=== PATIENT | female | born 1985 | race Caucasian/White ===

== ENCOUNTER → 2024-11-02 | Outpatient (CLI) | payer OTHER, SELFPAY ==
[2024-11-02 12:30] LABS: hCG Titer Quant., Serum 137 mIU/mL (<9 non-preg)
== END | disposition home or self-care (01) ==
PROVIDERS: PCP Student in an Organized Health Care Education/Training Program; Referring Provider Advanced Practice Midwife; Visit Provider Advanced Practice Midwife
DX: N91.2 Amenorrhea, unspecified (principal)
CPT/HCPCS: 36415; 84702

== ENCOUNTER 2024-11-13 09:27 | Emergency (ER) | payer OTHER, SELFPAY ==
[2024-11-13 09:28] VITALS: BP 103/74; PULSE 74; RESP 16; TEMP 35.8; O2SAT 100; BMI 23.6
--- NOTE | 2024-11-13 09:46 | EDS_ITS ---
HPI HPI - Female History of Present Illness Chief Complaint: Vag Bleeding Informant: patient Pain Pain: Positive for - (Pelvic cramping) Onset: Today and Yesterday Timing: Intermittent Current Severity: Mild Maximum Severity: Mild Bleeding Issue: Positive for Vaginal bleeding Onset: Today and Yesterday Timing: Intermittent Current Severity: Similar to period Associated Symptoms Associated Symptoms: Negative for Dysuria, Frequency or Urgency Test: Positive Sexually: Positive for Active Control: No control P: 0 Ab: 0 Narrative Narrative: 39-year-old female G1, P0 Ab0. Proximately 5 weeks with her last menstrual period 10/03/2024. Sees [facility] DISTANCE OPERATOR. Basically patient started having some dull pelvic cramping with bleeding yesterday today the bleeding is like a period. Denies any passage of tissue. No fever. No dysuria. She has had no prior pregnancies. Denies any other complaints. Prior similar symptoms: No Recent Illness/Hospitalization: No PFSH PFSH Medical History Amenorrhea H/O headache Emotional problems Seasonal allergies Home Medications ?Medication ?Instructions ?Recorded ?Last Taken ?Type buspirone 5 mg tablet 5 mg PO BID 11/02/24 Unknown History escitalopram oxalate 10 mg tablet 10 mg PO QDAY Unknown History (Lexapro) fexofenadine 60 mg-pseudoephedrine 1 tab PO Q12H PRN 0 11/02/24 Unknown History ER 120 mg tablet,ext.release,12 hr (Jeannette-D 12 Hour) polyethylene glycol 3350 17 gram 17 g PO QDAY 11/02/24 Unknown History oral powder packet (Miralax) cetirizine 10 mg tablet (24Hour 10 mg PO DAILY PRN all ergy symptoms 11/13/24 Unknown History Allergy) Allergy/AdvReac Type Severity Reaction Status Date / Time Environmental Allergies: AdvReac Mild sneezing Verified 11/13/24 09:29 Uncoded (dust mites) Family History Father Heart disease High cholesterol Other Hypertension Surgical History S/P wisdom tooth extraction Social History adopted: No household members: spouse housing: house number of children: 0 current occupational status: unemployed pets and animals: No history of recent travel: Yes ([place]) out of state: Yes out of country: No sexually active: Yes Smoking Status: Never smoker second hand exposure: No alcohol intake: never substance use type: does not use well-balanced diet: daily or most days caffeine: Yes Type: carbonated beverages Number of servings: 1 eating out: other details: 2 / thu what type of physical activity do you participate in: none chris/sabianism: Apostolic seatbelt use: always do you feel safe at home: Yes additional social history: - [place] ROS ED ROS Narrative Denies recent illness. Constitutional Constitutional ED: Denies chills or fever(s) Eyes Eyes: Denies blurry vision ENT ENT ED: Denies ear pain Cardiovascular Cardiovascular: Denies chest pain Respiratory/Chest Respiratory/Chest: Denies cough or dyspnea Gastrointestinal Gastrointestinal: Denies abdominal pain Genitourinary Genitourinary ED: Denies dysuria, hematuria or urinary frequency Musculoskeletal Musculoskeletal: Denies arthralgias, myalgias or neck pain Integumentary Denies abscess or Abrasions Neurologic Neurologic: Denies headache(s) Endocrine Endocrinology: Denies heat intolerance or polydipsia Hematologic/Lymphatic Hematologic/Lymphatic: Denies easy bleeding Allergic/Immunologic Allergic/Immunologic ED: Denies mouth swelling EXAM Physical Exam Narrative Exam Narrative: Well-appearing 39-year-old female. Vital signs stable afebrile. No acute distress. at bedside. H EENT exam pupils are reactive light. Moist extremities. Lungs clear to auscultation. Heart regular rhythm rate about 70 no murmur. Chest wall ribs nontender. Abdomen soft nontender. No peritoneal signs. No significant suprapubic tenderness on exam. Back nontender. Moving all 4 extremities. Normal strength. Normal range of motion. Nontender no edema. Neurologically she is awake alert. Answering questions following commands. Const Vital Signs: 11/13/24 09:28 Temperature 96.5 F L Temperature Source Temporal Pulse Rate 74 Respiratory Rate 16 Blood Pressure 103/74 Blood Pressure Mean 83 Pulse Ox 100 Oxygen Delivery Method Room Air Positive well nourished and well developed; Negative for obese, cachectic, contractures or unkempt General Appearance ED: well developed and NAD; Negative for unkempt, cachectic or contractures Nutritional Appearance: Negative for cachectic or obese HEENT Reports moist mucous membranes Eyes PERRL and EOMs intact bilaterally General Eye ED: Negative for pale conjunctiva or scleral icterus Neck no lymphadenopathy, supple and no JVD Chest Wall inspection of chest normal and palpation of chest normal Resp normal respiratory effort and clear to auscultation bilaterally Cardio regular rate, regular rhythm, S1 normal heart sound, no murmurs and no JVD GI normal to inspection, nondistended, normoactive bowel sounds, soft to palpation, non-tender, non-distended and no masses Auscultation: normoactive bowel sounds Back/Spine Negative for no CVA tenderness General Back: Negative for CVA tenderness Cervical Spine: Negative for cervical spine tenderness Thoracic Spine / Upper Back: Negative for thoracic spinal tenderness Lumbar Spine / Lower Back: Negative for lumbar spinal tenderness Extremity normal to inspection and full ROM General Extremety ED: Negative for edema or tenderness General Extremity: Negative for edema Neuro oriented x3 and CN's II-XII intact bilaterally Sensorium / Orientation: alert, oriented to person, oriented to place and oriented to time; Negative for confused, lethargic or stuporous Motor Exam: strength 5/5 throughout Psych mental status grossly normal Appearance: Negative for unkempt Attitude: No agitated Skin no rashes or lesions noted and no wounds MDM MDM MDM Narrative Medical decision making narrative: 39-year-old female G1, P0 Ab0. 5 weeks . Vaginal bleeding pelvic cramping since yesterday. Concern for miscarriage. Quant, blood type of blood count be obtained. She is having no urinary symptoms. She had a quant 1 to 2 weeks ago was 137 at that time. I will see what her quant is today before I order an ultrasound because of its too low I do not think it is getting give us much information. Also currently this does not appear to be an ectopic. Repeat exam patient is doing well at 11:15 AM. I spoke to LONG DISTANCE OPERATOR on-call Dr. Lis Whitney. Both she and are comfortable with patient being discharged to home. Outpatient follow-up with their office. Call their office tomorrow. Repeat quant in 2 days. I discussed all that with the patient and her and and they are comfortable with the plan. Currently being treated as early miscarriage. History & Record Review Discussion w/independent historian: Patient and Family Additional record(s) reviewed:: Prior inpatient record, Prior outpatient record, Prior ED visit and Prior labs Lab Data Attestation: I reviewed the patient's lab results. Lab results narrative: CBC shows a white count of 8 H&H 9.3 and 28. Platelets 154. Blood type O+. Quant 234. Prior quant 11 days ago was 137. Labs: Laboratory Results - last 24 hr 11/13/24 11/13/24 09:39 09:50 WBC 8.7 RBC 3.00 L Hgb 9.3 L Hct 28.6 L MCV 95.3 MCH 31.0 MCHC 32.5 RDW Std Deviation 46.3 H RDW Coeff of Beth 13.2 Plt Count 154 MPV 9.6 HCG, Quant 234 H Blood Type O POSITIVE Discharge Plan Triage Chief Complaint: Vag Bleeding ED Provider: Niko Tran Dx/Rx/DC Orders Clinical Impression: Incomplete miscarriage Instructions: ED MISCARRIAGE Incomplete Prescriptions: No Action buspirone 5 mg tablet 5 mg PO BID escitalopram oxalate [Lexapro] 10 mg tablet 10 mg PO QDAY fexofenadine-pseudoephedrine [Jeannette-D 12 Hour] 60-120 mg tablet extended release 12 hr 1 tab PO Q12H PRN polyethylene glycol 3350 [Miralax] 17 gram powder in packet 17 g PO QDAY cetirizine [24Hour Allergy] 10 mg tablet 10 mg PO DAILY PRN (Reason: allergy symptoms) Primary Care Provider: Claudine Manzanares Referrals: Karen Reyes DO [Med Staff - Active Staff] - As soon as possible (Call their office tomorrow to be seen no follow-up in appointment in the next several days. They are going to get a repeat quantitative hCG to see if that is going down.) Claudine Manzanares DO [Primary Care Provider] - Activity Restrictions/Additional Instructions: I spoke to Dr. Whitney. Call their office tomorrow. They will see in the next several days. They are going to want to get additional blood work to see if you are quantitative hCG is going down. Motrin and Tylenol for pain. Follow-up with them or return and see us in the emergency department if you start having real heavy bleeding or develop a fever. Print Language: Icelandic Disposition Disposition: Home, Self Care
[2024-11-13 09:55] LABS: Hematocrit 28.6 % (37-47); Hemoglobin 9.3 g/dL (12.0-15.0); Mean Corp Hgb Conc 32.5 g/dL (32-36); Mean Corpuscular Volume 95.3 fL (81-99); Mean Platelet Vol. 9.6 fl (6.2-12.0); Platelet Count 154 K/mm3 (150-450); RBC Distribution Width CV 13.2 % (11.6-14.6); RBC Distribution Width SD 46.3 fl (35.1-43.9); White Blood Count 8.7 K/mm3 (4.4-11.0)
--- OUTSIDE RECORDS SUMMARY | 2024-11-13 10:10 | XMS RPT_ITS | CCD ---
Author Organization [facility] Care Team Providers Care Consultant Name Role Phone Reji Owusu DO Primary Care Provider REJI OWUSU Attending Unavailable REJI OWUSU Primary Care Unavailable Alexa Stacy CNM Attending Provider Dr. Reji Owusu DO Primary Care Provider [phone] Alexa Stacy CNM Referring Provider Alexa Stacy Attending Unavailable Alexa Stacy Attending Unavailable Alexa Stacy Referring Unavailable Reji Owusu Primary Care Unavailable Allergies Allergy Classification Reported Allergen(s) Allergy Type Date of Onset Reaction(s) Facility (2 sources) House Dust Mite; Translations: [HOUSE DUST MITE] Propensity to adverse reactions 5 [facility] (3 sources) Environmental Allergies: Uncoded; Translations: [Environmental Allergies: Uncoded] Propensity to adverse reactions 5 sneezing [facility] Medications Current Medications Medication Drug Class(es) Dates Sig (Normalized) Sig (Original) amitriptyline hydrochloride 10 mg oral tablet (3 sources) Tricyclic Antidepressant Start: 11-02-2024 take 1 tablet by mouth once daily Amitriptyline 10 mg tablet Active 10 mg PO daily November 02, 2024 12:00am take 1 tablet by mouth twice laly ly amitriptyline (Elavil) 10 mg tablet Take 1 tablet (10 mg) by mouth 2 times a day. Active busPIRone hydrochloride 5 mg oral tablet (3 sources) Start: 11-02-2024 take 1 tablet by mouth twice daily Buspirone 5 mg tablet Active 5 mg PO TWICE A DAY November 02, 2024 12:00am busPIRone (Buspa r) 5 mg tablet Take by mouth 2 times a day. Active escitalopram 10 mg oral tablet (3 sources) Serotonin Reuptake Inhibitor Start: 11-02-2024 take 1 tablet by mouth once daily Escitalopram Oxalate (Lexapro) 10 mg tablet Active 10 mg PO daily November 02, 2024 12:00am take 1 tablet by mouth once reza y escitalopram (Lexapro) 10 mg tablet Take 1 tablet (10 mg) by mouth once daily. Active 12 hr fexofenadine hydrochloride 60 mg / pseudoephedrine hydrochloride 120 mg extended release oral tablet (3 sources) alpha-Adrenergic Agonist, Histamine-1 Receptor Antagonist Start: 11-02-2024 take 1 tablet by mouth every twelve hours as needed Fexofenadine-Pseudoephedrine (Jeannette-D 12 Hour) 60-120 mg tablet extended release 12 hr Active 1 {tbl} PO Q12H as needed November 02, 2024 12:00am take 1 tablet by nilo th once daily fexofenadine/pseudoephedrine (JEANNETTE-D 12 HOUR ORAL) Take 1 tablet by mouth once daily. Active Lactobacillus acidophilus (1 source) take 1 capsule by mouth once daily Lactobacillus acidophilus (PROBIOTIC ORAL) Take 1 capsule by mouth once daily. Active Lactobacillus combo no.23 (Zain Probiotic) (2 sources) Start: Lactobacillus combo no.23 (Zain Probiotic) Active PO November 02, 2024 12:00am polyethylene glycol 3350 02387 mg powder for oral solution (3 sources) Osmotic Laxative Start: Polyethylene Glycol 3350 (Miralax) 17 gram powder in packet Active 17 g PO daily November 02, 2024 12:00am polyethylene gly col (Glycolax, Miralax) 17 gram packet Take 17 g by mouth once daily. Active Problems Active Problems Problem Classification Problem Date Documented Da te Episodic/Chronic Anxiety disorders (4 sources) Anticipatory anxiety, mild; Translations: [Other specified anxiety disorders] Onset: 10-05-2024 10-05-2024 Chronic Contraceptive and procreative management (2 sources) Patient encounter status; Translations: [Encounter for other general counseling and advice on procreation] 11-02-2024 Episodic Menstrual disorders (2 sources) Amenorrhea; Translations: [Amenorrhea, unspecified] Onset: 11-07-2024 11-02-2024 Chronic Other inflammatory condition of skin (2 sources) Psoriasis; Translations: [Psoriasis, unspecified] Onset: 10-05-2024 10-05-2024 Chronic Other inflammatory condition of skin (2 sources) Psoriasis, unspecified; Translations: [Psoriasis, unspecified] Onset: 10-05-2024 Chronic Other screening for suspected conditions (not mental disorders or infectious disease) (2 sources) Follow-up status; Translations: [Encounter for test, result unknown] Onset: 11-02-2024 11-02-2024 Episodic Past or Other Problems Problem Classification Problem Date Documented Da te Episodic/Chronic Unclassified (1 source) Onset: 10-05-2024 10-05-2024 Results Test Name Value Interpretation Reference Range Facil ity Laboratory - Chemistry and C hemistry - challengeOrdered By: Alexa Stacy on 11-02-2024 HCG ( test) Ql (U) Negative [facility] Office Visit Reporton 11-02-2024 Inside [facility] Office Visit Report [facility] [address], [address] [place] [address] OFFICE VISIT Date of Service: 11/02/24 MR#: [id number] Acct: [id number] Name: REKHA REYES Rep #: [id number] : 1985 Provider: GAUDENCIO Wheatley ams Age/Sex: 38/F Location: [facility] Status: Signed Intake Vital Signs 11/02/24 08:28 Height 5 ft 5 in Weight: 143 lb BMI 23.8 BP 104/65 Intake Visit Reasons: Fertility Consult () Resawyer Required: No Is patient in pain?: No Allergies Environmental Allergies: Uncoded (dust mites) Adverse Reaction (Mild, Verified 11/02/24 08:47) sneezing Medications ???Medication ???Instructions ???Recorded ???Confirmed ???Type Lactobacillus combo no.23 [Zain PO 11/02/24 11/02/24 History Probiotic] amitriptyline 10 mg tablet 10 mg PO QDAY 11/02/24 11/02/24 Hi story buspirone 5 mg tablet 5 mg PO BID 11/02/24 11/02/24 Hist ory escitalopram oxalate 10 mg tablet 10 mg PO QDAY 11/02/24 11/02/24 H istory (Lexapro) fexofenadine 60 mg-pseudoephedrine 1 tab PO Q12H PRN 11/02/2411/02 History ER 120 mg tablet,ext.release, 12 hr (Jeannette-D 12 Hour) polyethylene glycol 3350 17 gram 17 g PO QDAY 11/02/24 11/02/24 His tory oral powder packet (Miralax) Is last menstrual period known: Yes Last Menstrual Period: 10/03/24 Post menopausal: No : No Do you think of yourself as: straight/heterosexu al Current gender identity: female [facility] Medical History (Updated 11/02/24 @ 09:37 by Alexa Stacy CNM) Amenorrhea H/O headache Emotional problems Seasonal allergies Surgical History (Updated 11/02/24 @ 08:41 by Bhumika Bhagat) S/P wisdom tooth extraction Family History (Updated 11/02/24 @ 08:42 by Bhumika Bhagat) Father Heart disease High cholesterol Other Hypertension Social History (Updated 11/02/24 @ 08:44 by Bhumika Bhagat) adopted: No household members: spouse housing: house number of children: 0 service: No current occupational status: unemployed pets and animals: No history of recent travel: Yes ([place]) out of state: Yes out of country: No sexually active: Yes do you think of yourself as: straight/heterosexu al current gender identity: female Smoking Status: Never smoker second hand exposure: No alcohol intake: never substance use type: does not use well-balanced diet: daily or most days caffeine: Yes Type: carbonated beverages Number of servings: 1 eating out: other details: / thu what type of physical activity do you participate in: none chris/baptist: Apostolic seatbelt use: always do you feel safe at home: Yes additional social history: - Shiva GAYATHRI Fertility Consult () Details: RKEHA REYES is a 38 year old who presents for preconception/infer tility consult. Has been 3 months. Patient did take test yesterday and it was positive. Will repeat today. Reviewed medication list from PCP and is titrating amitriptyline down. She is using this for tension headaches. Reviewed safe medications in . Pap is up to date by OB in another state. Will request records. Female Reproductive History Last Menstrual Period: 10/03/24 Cycle Length: 21-35 Questions: metorrhagia: No, sexually active: Yes, dyspareunia: No and PCB: No ROS Const Constitutional: Reports system reviewed and no additional complaints, except as documented Cardio Card: Reports system reviewed and no additional complaints, except as documented Resp Resp: Reports system reviewed and no additional complaints, except as documented GI GI: Reports system reviewed and no additional complaints, except as documented : Reports system reviewed and no additional complaints, except as documented Skin Skin/Breast: Reports system reviewed and no additional complaints, except as documented Neuro Neuro: Reports system reviewed and no additional complaints, except as documented Psych Psych: Reports system reviewed and no additional complaints, except as documented Exam Const General: cooperative, healthy appearing, comfortable and no acute distress Orientation: alert, awake and oriented x3 Neck Neck: normal visual inspection and full ROM Resp Effort Inspection: normal respiratory effort, able to speak in complete sentences and symmetric chest movement Skin General: no rashes or lesions noted Neuro General: patient alert, patient awake and patient oriented x3 Cognition: normal cognition Speech: speech normal Gait: normal gait Extrem General: normal to inspection and full ROM Psych Appearance: grossly normal and well kempt Mental Status: mental status grossly normal Affect: normal affect Speech and Movement: speech and movement normal Attitude: cooperative Thought Process: normal Thought Content: (more content not included)... Normal [facility] Serum human chorionic gonado tropin detection for pregnancyOrdered By: Alexa Stacy on 11-02-2024 HCG ( test) Ql 137 mIU/mL High <9 [facility] Comment on above: Gestational Age0.2-1 Week: 5-50 mIU/mL1-2 Weeks: 50-500 mIU/mL2-3 Weeks: 100-5000 mIU/mL3-4 Weeks: 500-10,000 mIU/mL4-5 Weeks:1000-50,000 mIU/mL5-6 Weeks: 10,000-100,000 mIU/mL6-8 Weeks: 15,000-200,000 mIU/mL2-3 Months:10,000-100,000 mIU/mL hCG Titer Quant., Serumon HCG QUANT. 137 mIU/mL High <9 non-preg [facility] Comment on above: Result Comment: Gest ational Age 0.2-1 Week: 5-50 mIU/mL 1-2 Weeks: 50-500 mIU/mL 2-3 Weeks: 100-5000 mIU/mL 3-4 Weeks: 500-10,000 mIU/mL 4-5 Weeks:1000-50,000 mIU/mL 5-6 Weeks: 10,000-100,000 mIU/mL 6-8 Weeks: 15,000-200,000 mIU/mL 2-3 Months:10,000-100,000 mIU/mL Performed By: #### L 700.8000 #### [facility] [address] [place], [address] Vital Signs Date Time Vital Sign Value Performing Clinician Vince chaves 11-02-2024 08:28-0400 Body height 165.1 cm Alexa Stacy CNM Work Phone: [facility] 11-02-2024 08:28-0400 Body mass index (BMI) [Ratio] 23.8 kg/m2 Alexa JOM Work Phone: [facility] 11-02-2024 08:28-0400 Body weight 64.86 kg Alexa JOM Work Phone: [facility] 11-02-2024 08:28-0400 Diastolic blood pressure 65 mm[Hg] Alexa JOM Work Phone: [facility] 11-02-2024 08:28-0400 Systolic blood pressure 104 mm[Hg] Alexa JOM Work Phone: [facility] 10-05-2024 14:23-0400 Body height 165.7 cm Reji Owusu DO Work Phone: [facility] 10-05-2024 14:23-0400 Body mass index (BMI) [Ratio] 22.99 kg/m2 Reji Owusu DO Work Phone: [facility] 10-05-2024 14:23-0400 Body weight 63.14 kg Reji Owusu DO Work Phone: [facility] 10-05-2024 14:23-0400 Diastolic blood pressure 68 mm[Hg] Reji Owusu DO Work Phone: [facility] 10-05-2024 14:23-0400 Heart rate 85 /min Reji Owusu DO Work Phone: [facility] 10-05-2024 14:23-0400 Systolic blood pressure 110 mm[Hg] Reji Owusu DO Work Phone: [facility] Encounters Encounter Date Encounter Type Care Provider Facility Start: 11-02-2024 End: 11-02-[address] Reji Owusu DO Work Phone: [facility] Work Phone: Start: 11-02-2024 End: 11-02-2024 Patient encounter procedure Alexa Stacy CNM -Laboratory Work Phone: Start: 11-02-2024 End: 11-02-2024 Patient encounter procedure Alexa Stacy CNM -[facility] Start: 11-02-2024 End: 11-02-2024 ambulatory Alexa Stacy [facility] Work Phone: Start: 11-02-2024 End: 11-02-2024 ambulatory Alexa Stacy Facility:[facility] Start: 10-05-2024 End: 10-05-2024 Office outpatient new 45 minutes Reji Owusu DO Work Phone: [facility] Comment on above: Mild anticipatory an xiety (Primary Dx); Psoriasis Start: 10-05-2024 End: 10-05-2024 ambulatory [facility] Start: 10-05-2024 End: 10-05-2024 Encounter for general adult medical examination without abnormal findings [facility] Plan of Treatment Date Care Activity Detail Author Start: 11-05-2035 Zoster Vaccines (1 of 2) Zoste r Vaccines (1 of 2) [facility] Start: 01-16-2025 Influenza vaccination Influenz a Vaccine (Season Ended) [facility] Start: 01-17-2024 COVID-19 Vaccine ( season) COVID-19 Vaccine ( season) [facility] Start: 11-05-2007 DTaP/Tdap/Td Vaccine s (1 - Tdap) DTaP/Tdap/Td Vaccines (1 - Tdap) [facility] Start: 2006 Screening for malign ant neoplasm of cervix [facility] Start: 2004 Hepatitis B Vaccines (1 of 3 - 19+ 3-dose series) Hepatitis B Vaccines (1 of 3 - 19+ 3-dose series) [facility] Start: 11-05-2003 Hepatitis C screening Hepatitis C Sc reening [facility] Start: 1998 Varicella vaccination Varicell a Vaccines (1 of 2 - 13+ 2-dose series) [facility] Start: 1986 MMR Vaccines (1 of 1 - Standard series) MMR Vaccines (1 of 1 - Standard series) [facility] Start: 1985 HIV screening HIV Screening [facility] Start: 1985 Lipid panel Lipid Panel [facility] Start: 1985 Yearly Adult Physical Yearly Adult P hysical [facility] Payers Date Payer Category Payer Self-pay 2024 Managed Care (Private) [facility] [id number] 2024 Private Health Insurance [id number] 1985 Unknown [id number] Unknown [id number] Unknown [id number] Social History Date Type Detail Facility Start: 10-05-2024 End: 11-02-2024 Tobacco smoking status NHIS Never smoked tobacco [facility] Work Phone: Start: 10-05-2024 Tobacco use and exposure Smokeless tobacco non-user [facility] Work Phone: Start: 10-05-2024 Alcoholic beverage intake Lifetime non-drinker (finding) [facility] Work Phone: Start: 10-05-2024 History of Social function [facility] Work Phone: Start: 10-05-2024 Tobacco use [facility] Work Phone: Start: 1985 Sex assigned at Not on file [facility] Work Phone: Start: 09-25-2024 End: 10-05-2024 Exposure to SARS-CoV-2 (event) Not sure [facility] Start: 1985 Sex Assigned At Female W [facility] Sexual Orientation Heterosexual (finding) [facility] NEGATED: Highlighted rowStart: NINF History of tobacco use Passive smoker [facility] Work Phone: Functional Status Date Assessment Result Facility 10-05-2024 Patient Health [facility] ionnaire 2 item (PHQ-2) [Reported] [facility] Work Phone: 10-05-2024 PHQ-9 quick depressi on assessment panel [Reported.PHQ] [facility] Work Phone: Evaluation note 11-02-2024 Note Date & Type Note Facility 11-02-2024 Evaluation note Diagnosis Onset Date Resolution Encounter for preconception consultation acute November 02, 2024 8:18am [facility] Work Phone: History of Present illness Narrative 10-05-2024 Reji Owusu DO - 10/05/2024 2:40 PM EDT Note Date & Type Note Facility 10-05-2024 History of Present illness Narrative Subjective Patient ID: Rekha Reyes is a 38 y.o. female who presents for New patient to establish care. . HPI Patient presents to establish. Fam Hx Paternal history of heart disease Paternal Grandfather (56) , after 2nd heart surgery Mom () living, Dad () living, cad, stent (50's), HTN, HPL Sister () living, thyroid issues Sister () living, Brother () living, Brother () living, Exercise walks ETOH denies Caffeine 1 pop/day Tobacco denies CALL C[employer] TRA[employer]ER Mammogram @ 40 DEXA @ 65 Colonoscopy @ 45 Past Med Hx Psoriasis Anxiety Allergic rhinitis Tension headache Past Surg Hx [place] teeth Patient denies other complaints. Review of Systems Constitutional: Negative for activity change, appetite change, fatigue and fever. HENT: Negative for congestion. Respiratory: Negative for cough, choking and chest tightness. Cardiovascular: Negative for chest pain, palpitations and leg swelling. Musculoskeletal: Negative for arthralgias, back pain and gait problem. Skin: Negative for color change and pallor. Neurological: Negative for dizziness, facial asymmetry, light-headedness and headaches. Objective BP 110/68 (BP Location: Left arm, Patient Position: Sitting) Pulse 85 Ht 1.657 m (5' 5.25) Wt 63.1 kg (139 lb 3.2 oz) BMI 22.99 kg/m BSA Body surface area is 1.7 meters squared. Physical Exam Constitutional: General: She is not in acute distress. Appearance: Normal appearance. She is not toxic-appearing. HENT: Head: Normocephalic. Right Ear: Tympanic membrane, ear canal and external ear normal. Left Ear: Tympanic membrane, ear canal and external ear normal. Eyes: Conjunctiva/sclera: Conjunctivae normal. Pupils: Pupils are equal, round, and reactive to light. Cardiovascular: Rate and Rhythm: Normal rate and regular rhythm. Pulses: Normal pulses. Heart sounds: Normal heart sounds. Pulmonary: Effort: No respiratory distress. Breath sounds: No wheezing, rhonchi or rales. Musculoskeletal: General: No swelling or tenderness. Skin: Findings: No lesion or rash. Neurological: General: No focal deficit present. Mental Status: She is alert and oriented to person, place, and time. Mental status is at baseline. Gait: Gait normal. Psychiatric: Mood and Affect: Mood normal. Behavior: Behavior normal. Thought Content: Thought content normal. Judgment: Judgment normal. No results found for any previous visit. Medications Ordered Prior to Encounter[1] No images are attached to the encounter. Assessment/Plan Diagnoses and all orders for this visit: Mild anticipatory anxiety Psoriasis 1. Patient to have additional blood work performed 2. Patient to schedule physical exam at her earliest convenience 3. Mammogram @ 40 4. DEXA @ 65 5. Colonoscopy @ 45 6. Patient to call questions or concerns [1] Current Outpatient Medications on File Prior to Visit Medication Sig Dispense Refill amitriptyline (Elavil) 10 mg tablet Take 1 tablet (10 mg) by mouth 2 times a day. busPIRone (Buspar) 5 mg tablet Take by mouth 2 times a day. escitalopram (Lexapro) 10 mg tablet Take 1 tablet (10 mg) by mouth once daily. fexofenadine/pseudoephedrine (JEANNETTE-D 12 HOUR ORAL) Take 1 tablet by mouth once daily. Lactobacillus acidophilus (PROBIOTIC ORAL) Take 1 capsule by mouth once daily. polyethylene glycol (Glycolax, Miralax) 17 gram packet Take 17 g by mouth once daily. No current facility-administered medications on file prior to visit. documented in this encounter [facility] Work Phone: Evaluation note Note Date & Type Note Facility Evaluation note Diagnosis Mild anticipatory anxiety- Primary Psoriasis Other psoriasis documented in this encounter [facility] Work Phone: Evaluation note Note Date & Type Note Facility Evaluation note No assessment information availa veto [facility] Work Phone: Reason for referral (narrative) Note Date & Type Note Facility Reason for referral (narrative) No reason for referral information available [facility] Work Phone: Summary Purpose Family History No Family History Records Found Relationship Condition Age at Onset Recorded Date/T kelly Not Specified Hypertension Unknown father Cardiac disease Unknown High blood cholesterol Unknown Advance Directives No Advanced Directives Records FoundNo Advanced Directives Records Found Chief Complaint and Reason for Visit Chief Complaint Admit Date Fertility Consult () November 02, 2024 8 :18am Reason for Visit Admit Date Encounter for preconception consultation November 02, 2024 8:18am Additional Source Comments Reason for Visit (unrecogniz ed section and content) Reason Comments New patient to establish care. Care Teams (unrecognized sec tion and content) Consultant Relationship Specialty Start Date End Date Reji Owusu DO [address] [facility] [address] [place] [address] PCP - General Family Medicine 10/05/24 Team Status: Inactive Member Role Status Dates Alexa Stacy CNM Attending Provider Active S tart: November 02, 2024 End: November 02, 2024 Team Status: Active Member Role Status Dates Dr. Reji Owusu DO Primary Care Provider Active Team Status: Inactive Member Role Status Dates Dr. Reji Owusu DO Primary Care Provider Active Start: November 02, 2024 End: November 02, 2024 Alexa Stacy CNM Attending Provider Active S tart: November 02, 2024 End: November 02, 2024 Alexa Stacy CNM Referring Provider Active S tart: November 02, 2024 End: November 02, 2024 INFORMATION SOURCE (unrecogn ized section and content) DATE CREATED AUTHOR 10/12/2024 [facility] DATE CREATED AUTHOR AUTHOR'S ORGANIZ ATION 11/08/2024 [facility] Goals (unrecognized section and content) Goals may be documented in a n alternate sectionGoals may be documented in an alternate section FOR RECORDS PERTAINING TO PATIENTS WHO ARE OR HAVE BEEN ENROLLED IN A CHEMICAL DEPENDENCY/SUBSTANCEABUSE PROGRAM, SOME INFORMATION MAY BE OMITTED. This clinical summary was aggregated from multiple sources. Caution should be exercised in using it in the provision of clinical care. This summary normalizes information from multiple sources, and as a consequence, information in this document may materially change the coding, format and clinical context of patient data. In addition, data may be omitted in some cases. CLINICAL DECISIONS SHOULD BE BASED ON THE PRIMARY CLINICAL RECORDS. [employer] [facility] provides no warranty or guarantee of the accuracy or completeness of information in this document.
[2024-11-13 10:44] LABS: hCG Titer Quant., Serum 234 mIU/mL (<9 non-preg)
[2024-11-13 11:28] VITALS: BP 111/76; PULSE 84; RESP 16; TEMP 36.6; O2SAT 100
== END 2024-11-13 11:29 | disposition home or self-care (01) ==
PROVIDERS: Emergency Provider Emergency Medicine; PCP Student in an Organized Health Care Education/Training Program; Visit Provider Emergency Medicine
DX: O03.4 Incomplete spontaneous abortion without complication (principal)
CPT/HCPCS: 84702; 85027; 86900; 86901; 99283; A4216

== ENCOUNTER → 2024-11-15 | Outpatient (CLI) | payer OTHER, SELFPAY ==
[2024-11-15 12:26] LABS: hCG Titer Quant., Serum 49 mIU/mL (<9 non-preg)
== END | disposition home or self-care (01) ==
PROVIDERS: PCP Student in an Organized Health Care Education/Training Program; Referring Provider Obstetrics & Gynecology; Visit Provider Obstetrics & Gynecology
DX: O03.4 Incomplete spontaneous abortion without complication (principal)
CPT/HCPCS: 36415; 84702

== ENCOUNTER → 2024-11-22 | Outpatient (CLI) | payer OTHER, SELFPAY ==
[2024-11-22 16:44] LABS: hCG Titer Quant., Serum 2 mIU/mL (<9 non-preg)
== END | disposition home or self-care (01) ==
LOC: LAB 14:18
PROVIDERS: PCP Student in an Organized Health Care Education/Training Program; Referring Provider Obstetrics & Gynecology; Visit Provider Obstetrics & Gynecology
DX: O03.4 Incomplete spontaneous abortion without complication (principal)
CPT/HCPCS: 36415; 84702

== ENCOUNTER → 2025-05-08 | Outpatient (CLI) | payer OTHER, SELFPAY ==
[2025-05-08 12:53] LABS: Hematocrit 37.1 % (37-47); Hemoglobin 11.9 g/dL (12.0-15.0); Immature Granulocytes Count 0.060 X10^3/uL (0.0-0.0); Mean Corp Hgb Conc 32.1 g/dL (32-36); Mean Corpuscular Volume 94.6 fL (81-99); Mean Platelet Vol. 11.4 fl (6.2-12.0); NRBC Flagged by Analyzer 0 % (0-5); Platelet Count 245 K/mm3 (150-450); RBC Distribution Width CV 13.6 % (11.6-14.6); RBC Distribution Width SD 46.7 fl (35.1-43.9); Red Blood Count 3.92 M/mm3 (4.2-5.4); White Blood Count 9.7 K/mm3 (4.4-11.0)
[2025-05-08 13:34] LABS: HIV Nonreactive (Nonreactive); Hepatitis B Surface Antigen Nonreactive (Nonreactive); Hepatitis C Antibody Nonreactive (Nonreactive); Syphilis Antibodies Nonreactive (Nonreactive)
[2025-05-09 20:08] LABS: Chlamydia By Nucleic Acid AMP Negative (Negative); Gonococcus By Nucleic Acid AMP Negative (Negative)
== END | disposition home or self-care (01) ==
PROVIDERS: Student in an Organized Health Care Education/Training Program; PCP Student in an Organized Health Care Education/Training Program; Visit Provider Advanced Practice Midwife
DX: O09.90 Supervision of high risk pregnancy, unspecified, unspecified trimester (principal); Z3A.00 Weeks of gestation of pregnancy not specified
CPT/HCPCS: 36415; 85025; 86703; 86762; 86780; 86803; 86850; 86900; 86901; 87086; 87088; 87340; 87491; 87591